=== PATIENT | female | born 1975 | race Hispanic/Latino ===

== ENCOUNTER 2018-04-28 23:32 | Emergency (ER) | payer OTHER ==
[2018-04-29] MEDS ORDERED: AMOXICILLIN 500 MG CAPSULE PO ONE (00:16)
[2018-04-29] MEDS ORDERED: HYDROCODONE/ACETAMINOPHEN 5/325 MG TAB ONE (00:17)
== END 2018-04-29 00:56 | disposition home or self-care (01) ==
LOC: EDH 23:32
DX: K04.7 Periapical abscess without sinus (principal); K03.81 Cracked tooth